=== PATIENT | female | born 1975 | race Caucasian/White ===

== ENCOUNTER 2017-05-13 12:50 | Outpatient (CLI) ==
[2017-05-13 13:01] LABS: BASOPHILS # (AUTO) 0.1 K/uL (0-0.2); BASOPHILS % (AUTO) 0.6 % (0.0-3.0); EOSINOPHILS # (AUTO) 0.5 K/ul (0.0-0.7); EOSINOPHILS % (AUTO) 4.7 % (0.0-7.0); HEMATOCRIT 37.6 % (37.0-47.0); HEMOGLOBIN 12.6 g/dl (12.0-16.0); IMMATURE GRANULOCYTE % (AUTO) 0.2 % (0.0-5.0); LYMPHOCYTES # (AUTO) 2.7 K/uL (0.60-3.4); LYMPHOCYTES % (AUTO) 23.6 (10.0-50.0); MEAN CORPUSCULAR HEMOGLOBIN 28.1 pg (27.0-31.0); MEAN CORPUSCULAR HGB CONC 33.5 (31.8-35.4); MEAN CORPUSCULAR VOLUME 83.9 fl (81.0-99.0); MONOCYTES # (AUTO) 0.7 K/uL (0.4-2.0); MONOCYTES % (AUTO) 5.7 (0-10); NEUTROPHILS # (AUTO) 7.4 K/ul (2.0-6.9); NEUTROPHILS % (AUTO) 65.2; PLATELET COUNT 265 10^3/uL (140-440); RED BLOOD COUNT 4.48 10^6/ul (4.20-5.40); WHITE BLOOD COUNT 11.37 K/ul (4.6-10.2)
[2017-05-13 13:35] LABS: ALBUMIN 3.9 g/dL (3.4-5.0); ALBUMIN/GLOBULIN RATIO 0.98; ANION GAP 12.8; BILIRUBIN,TOTAL 0.26 mg/dL (0.00-1.20); BUN/CREATININE RATIO 22.66; CALCIUM 9.8 mg/dL (8.2-10.2); CHOL/HDL RATIO 6.3 (4.5-5.5); CREATININE 0.75 mg/dL (0.60-1.30); POTASSIUM 3.8 mmol/L (3.5-5.10); TOTAL PROTEIN 7.9 g/dL (6.4-8.2)
== END 2017-05-13 12:51 | disposition home or self-care (01) ==
LOC: LAB 12:50
PROVIDERS: ATTEND Nurse Practitioner Family
DX: E11.9 Type 2 diabetes mellitus without complications (principal); I10 Essential (primary) hypertension; E55.9 Vitamin D deficiency, unspecified
CPT/HCPCS: 36415; 80053; 80061; 82306; 83036; 84443; 85025

== ENCOUNTER 2017-07-24 14:08 | Outpatient (CLI) | END 2017-07-24 14:09 | disposition home or self-care (01) | LOC: LAB 14:08 | PROVIDERS: ATTEND General Practice | DX: E11.9 Type 2 diabetes mellitus without complications (principal); I10 Essential (primary) hypertension; Z79.899 Other long term (current) drug therapy | CPT/HCPCS: 36415; 80053; 80061; 81001; 83036; 85025 ==

== ENCOUNTER 2017-09-06 12:17 | Outpatient (CLI) ==
--- NOTE | 2017-09-06 12:51 | DI ---
EXAM: Radiographs, right knee HISTORY: Right knee pain. COMPARISON: None available. TECHNIQUE: Four views. FINDINGS: Bone mineralization is normal. No fracture or dislocation identified. Mild marginal oste ophyte formation seen in the medial compartment. Joint spaces are maintained. Small exostosis noted off the medial aspect of the proximal tibial metaphysis. Soft tissues are unremarkable. IMPRESSION: 1. No fracture. 2. Mild medial compartment osteoarthritis. 3. Small proximal tibial exostosis.
== END 2017-09-06 12:18 | disposition home or self-care (01) ==
LOC: RAD 12:17
PROVIDERS: ATTEND General Practice
DX: M25.561 Pain in right knee (principal); M25.552 Pain in left hip; I10 Essential (primary) hypertension; R23.2 Flushing; M62.838 Other muscle spasm; R53.83 Other fatigue; R68.89 Other general symptoms and signs; Z79.899 Other long term (current) drug therapy
CPT/HCPCS: 36415; 83735

== ENCOUNTER 2018-11-24 00:39 | Emergency (ER) ==
[2018-11-24 00:54] VITALS: BP 155/91; TEMP 97.9; BMI 32.8
[2018-11-24 01:44] LABS: URINE PREGNANCY TEST NEGATIVE (NEGATIVE)
--- NOTE | 2018-11-24 02:40 | CT ---
EXAM: CT scan pelvis without contrast HISTORY: Fall COMPARISON: None. FINDINGS: Contiguous axial images obtained through pelvis without contrast utilizing 3 mL collimatio n. Sagittal and coronal reconstructions were imaged and reviewed. Degenerate disc disease is noted at L3-L4.. There is superior lateral migration of the left femoral head with shallow left acetabulum . There is joint space narrowing with subchondral cystic formation and marginal osteophytes. Marked osteoarthritic degenerative changes noted about the right hip joint. There is no acute fracture or dislocation. There is a 3.4 cm right adnexal cyst. IMPRESSION: Superior lateral migration of the left femoral head with associated shallow left acetabulum. There a re moderate to marked degenerative changes involving both hip joints. No acute findings. Right adnexal cyst without free fluid
--- NOTE | 2018-11-24 02:40 | CT ---
EXAM: CT lumbar spine without intravenous contrast 11/24/2018. Sagittal and coronal reformatted kurt ges obtained HISTORY: Fall COMPARISON: None. FINDINGS: There is approximately 2 mm retrolisthesis of L2 on L3 and 3 mm retrolisthesis of L3 on L4 . Multilevel chronic degenerative disc disease. Anterior wedging configuration is present at T11, T 12 and L1. This appears chronic. Multiple small end plate defects appear chronic. Multilevel sever e degenerative disc disease. Near-complete loss of disc space at L2-L3 and L3-L4. Multilevel hypertrophic facet arthropathy. Bulky posterior osteophyte formation appears to cause spinal stenosis at L1-L2, L2-L3 and L3-L4. Nito ateral neural foraminal stenosis throughout the lumbar spine. This is moderate L1-L2 and L2-L3. Mod erate to severe neural foraminal stenosis at the right aspect of L3-L4. Mild bilateral neural forami nal stenosis at L4-L5 and L5-S1. There is no evidence of acute fracture or subluxation at any level. IMPRESSION: Severe degenerative changes throughout the lumbar spine. No acute post traumatic osseou s abnormality. Outpatient MRI could be considered for further characterization.
--- NOTE | 2018-11-24 02:41 | DI ---
EXAM: Right knee four views HISTORY: Fall COMPARISON: None. FINDINGS: There is no evidence of fracture or joint effusion. The joint spaces are maintained. IMPRESSION: No acute findings
--- NOTE | 2018-11-24 02:41 | DI ---
EXAM: Right ankle three views HISTORY: Fall COMPARISON: None. FINDINGS: The ankle mortise and talar dome are intact . There is no acute fracture or dislocation. The surrounding soft tissues are unremarkable. IMPRESSION: No acute findings
--- NOTE | 2018-11-24 02:52 | ED.PDOC ---
General ED Provider: Dr. CLARIBEL PORTER-ER Chief Complaint: Fall Stated Complaint: i fell Time Seen by Physician: 00:45 Mode of Arrival: Walk-In Information Source: Patient Exam Limitations: No limitations Primary Care Provider: CLARIBEL PORTER Nursing and Triage Documentation Reviewed and Agree: Yes Does patient meet sepsis criteria?: No System Inflammatory Response Syndrome: Not Applicable Sepsis Protocol: For patient's 13 years and over: Temp is 96.8 and below OR 101 and greater Pulse >90 BPM Resp >20/minute Acutely Altered Mental Status Are patient's symptoms suggestive of a new infection, such as: -Pneumonia -Skin, Soft Tissue -Endocarditis -UTI -Bone, Joint Infection -Implantable Device -Acute Abdominal Infection -Wound Infection -Meningitis -Blood Stream Catheter Infection -Unknown Musculoskeletal Complaint Exam - Hip/Pelvis Complaint/Exam Location of Pain: Reports: Right, Hip Mechanism of Injury: Reports: Trauma Symptoms Are: Still present Initial Severity: Mild Current Severity: Mild Location: Reports: Discrete Aggravating: Reports: Movement, Weight bearing Associated Signs and Symptoms: Denies: Swelling, Redness, Bruising, Fever, Weakness, Dizziness, Syncope, Abdominal pain, Knee pain Pelvis Palpation: Stable Tenderness: Present: Right Review of Systems - Review Of Systems Constitutional: Reports: No symptoms Eyes: Reports: No symptoms Ears, Nose, Mouth, Throat: Reports: No symptoms Respiratory: Reports: No symptoms Cardiac: Reports: No symptoms GI: Reports: No symptoms : Reports: No symptoms Musculoskeletal: Reports: Back pain, Joint pain Skin: Reports: No symptoms Neurological: Reports: No symptoms Endocrine: Reports: No symptoms Hematologic/Lymphatic: Reports: No symptoms All Other Systems: Reviewed and Negative Past Medical History - Past Medical History Previously Healthy: No Endocrine: Reports: Unknown Cardiovascular: Reports: Unknown Respiratory: Reports: Unknown Hematological: Reports: Unknown Gastrointestinal: Reports: Unknown Genitourinary: Reports: Unknown Neuro/Psych: Reports: Unknown Musculoskeletal: Reports: Unknown Cancer: Reports: Unknown Last Menstrual Period: 3-4 WEEKS AGO - Surgical History General Surgical History: Reports: Unknown - Family History Family History: Reports: Unknown - Social History Smoking Status: Current every day smoker, Light tobacco smoker, Vaping Hx Substance Use: Yes (SMOKES WEED) Alcohol Screening: Occasionally - Immunizations Tetanus Shot up to Date: (UNKNOWN) Physical Exam - Physical Exam Appearance: Well-appearing, No pain distress, Well-nourished Eyes: MILAN ENT: Ears normal, Nose normal, Oropharynx normal Neck: Supple Respiratory: Airway patent, Breath sounds clear, Breath sounds equal, Respirations nonlabored Cardiovascular: RRR GI/: Soft Musculoskeletal: Limited ROM Skin: Warm, Dry, Normal color Neurological: Sensation intact Psychiatric: Affect appropriate, Mood appropriate Interpretation - Radiology Interpretation Radiology Interpretation By: Radiologist Radiology Results: Negative Exam Interpreted: CT Scan Critical Care Note - Critical Care Note Total Time (mins): 0 Course - Course Orders, Labs, Meds: Lab Review 11/24/18 01:35 Urine Test Negative Orders Category Date Time Status URINE Stat LAB 11/24/18 01:35 Completed ANKLE, RIGHT MIN 3 VIEWS Stat RADS 11/24/18 01:[address] LUMBAR SPINE W/O CONTRAST Stat RADS 11/24/18 01:[address] PELVIS W/O CONTRAST Stat RADS 11/24/18 01:25 Completed KNEE, RIGHT 4 VIEWS Stat RADS 11/24/18 01:25 Completed Vital Signs: Temp Pulse Resp BP Pulse Ox 11/24/18 00:40 97.9 F 123 H 20 155/91 H 96 Departure - Departure Time of Disposition: 02:51 Disposition: HOME SELF-CARE Discharge Problem: Contusion Qualifiers: Encounter type: initial encounter Contusion area: hip Laterality: right Qualified Code(s): S70.01XA - Contusion of right hip, initial encounter Instructions: Contusion in Adults (ED) Condition: Good Pt referred to PMD for follow-up: Yes IPMP verified?: No Additional Instructions: norco 5mg q 6hrs prn pain #12--f/u with me ni 48hrs if not better Allergies/Adverse Reactions: Allergies levofloxacin [From Levaquin] Allergy (Severe, Verified 11/24/18 00:51) Rash rash. Home Medications: Ambulatory Orders Acetaminophen 2 tab PO DIRECTED PRN 11/24/18 Tramadol HCl 50 mg PO Q6H 11/24/18 Disposition Discussed With: Patient
[2018-11-24] MEDS ORDERED: NORCO 5-325 PO STA (02:53)
== END 2018-11-24 03:08 | disposition home or self-care (01) ==
LOC: ED 00:39
DX: S70.01XA Contusion of right hip, initial encounter (principal); M54.9 Dorsalgia, unspecified; M25.50 Pain in unspecified joint; W19.XXXA Unspecified fall, initial encounter; F17.210 Nicotine dependence, cigarettes, uncomplicated
CPT/HCPCS: 81025; 99283